=== PATIENT | female | born 1945 | race Two or more races ===

== ENCOUNTER 2022-09-14 11:25 | Outpatient (CLI) | payer OTHER | END 2022-09-14 11:34 | disposition home or self-care (01) | LOC: NUCLEAR 11:25 | PROVIDERS: ATTEND Emergency Medicine | DX: M81.0 Age-related osteoporosis without current pathological fracture (principal) ==

== ENCOUNTER 2023-03-22 07:41 | Outpatient (CLI) | payer OTHER ==
[2023-03-22 08:57] LABS: HEMATOCRIT 36.7 % (36.0-45.00); HEMOGLOBIN 12.1 g/dL (12.0-15.00); MEAN CELL VOLUME 83.5 fL (80.00-100.00); MEAN CORPUSCULAR HEMOGLOBIN 27.5 pg (27.00-32.0); PLATELET COUNT 160 K/uL (150-450); RED BLOOD COUNT 4.39 M/uL (4.00-6.00); RED CELL DISTRIBUTION WIDTH 13.6 % (11.5-14.5)
[2023-03-22 09:27] LABS: CALCIUM 9.5 mg/dL (8.5-10.1); CHOL HDL RATIO 6.7 (0-5.0); CREATININE SERUM 0.83 mg/dL (0.55-1.02); GFR 67.02; POTASSIUM 4.46 mEq/L (3.5-5.1); TSH 2.26 uIU/mL (0.358-3.74)
[2023-03-22 09:30] LABS: URINE APPEARANCE Clear; URINE BILIRRUBIN Negative (NEGATIVE); URINE BLOOD Negative; URINE COLOR Yellow; URINE GLUCOSE Negative (NEGATIVE); URINE LEUKOCYTE Small; URINE NITRATE Negative; URINE PROTEIN Negative (NEGATIVE); URINE UROBILINOGEN 0.2 E.U./dl
[2023-03-22 09:38] LABS: URINE BACTERIA 137.3 uL (0.0-1933); URINE EPITHELIAL CELLS 11.5 uL (0.0-38.8); URINE RBC 4.1 uL (0.0-20.8); URINE WBC 43.5 uL (0.0-23.2)
== END 2023-03-22 07:42 | disposition home or self-care (01) ==
LOC: LAB 07:41
PROVIDERS: ATTEND Emergency Medicine
DX: R10.9 Unspecified abdominal pain (principal); E78.5 Hyperlipidemia, unspecified; N39.0 Urinary tract infection, site not specified; D64.9 Anemia, unspecified; E03.9 Hypothyroidism, unspecified; R80.9 Proteinuria, unspecified; E11.9 Type 2 diabetes mellitus without complications; Z12.11 Encounter for screening for malignant neoplasm of colon

== ENCOUNTER 2023-03-22 08:50 | Outpatient (CLI) | payer OTHER | END 2023-03-22 08:53 | disposition home or self-care (01) | LOC: SONOGRAMA 08:50 | PROVIDERS: ATTEND Emergency Medicine | DX: R10.13 Epigastric pain (principal) ==

== ENCOUNTER 2024-09-30 07:25 | Outpatient (CLI) | payer OTHER ==
[2024-09-30 08:12] LABS: BASO % 0.5 % (0.1-1.2); EOS # 0.24 (0.04-0.54); EOS % 4.0 % (0.7-7.0); LYMPH # 1.32 (1.18-3.74); LYMPH % 22.2 % (19.3-53.1); MEAN PLATELET VOLUME 12.10 fl (9.4-12.4); MONO # 0.55 (0.24-0.82); MONO % 9.3 % (4.7-12.5); NEUT # 3.78 (1.56-6.13); NEUT % 63.7 % (34.0-71.1); RED CELL DISTRIBUTION WIDTH 12.7 % (11.6-14.4)
[2024-09-30 08:50] LABS: INR 1.03
[2024-09-30 10:22] LABS: BUN CREA RATIO 30.0 (7.0-25.0); CREATININE SERUM 0.81 mg/dL (0.55-1.02); GFR 68.56; GLOBULINA 3.3 G/DL (2.4-3.5); GLUCOSE FASTING 188.0 mg/dL (65-100); OSMOLALITY SERUM 292.0 MOSM/KG (275-295)
[2024-09-30 10:23] LABS: ALT/SGPT 44.0 U/L (12-78); AST/SGOT 26.0 U/L (15-37); BILIRUBIN TOTAL 0.33 mg/dL (0.3-1.2)
== END 2024-09-30 07:32 | disposition home or self-care (01) ==
LOC: RAD 07:25
PROVIDERS: ATTEND Ophthalmology
DX: D68.8 Other specified coagulation defects (principal); H43.812 Vitreous degeneration, left eye; H43.12 Vitreous hemorrhage, left eye; Z01.811 Encounter for preprocedural respiratory examination; I10 Essential (primary) hypertension

== ENCOUNTER → 2024-10-15 09:46 | Outpatient (CLI) | payer OTHER | END | disposition home or self-care (01) | LOC: NUCLEAR 09:46 | DX: M81.0 Age-related osteoporosis without current pathological fracture (principal) ==